=== PATIENT | female | born 1990 | race Caucasian/White ===

== ENCOUNTER 2018-08-16 10:03 | Day surgery (SDC) | payer OTHER ==
[2018-08-16] MEDS ORDERED: LIDOCAINE 2% INJ 100 MG/5 ML SDV (FOR ANES.) As Ordered (10:31)
[2018-08-16] MEDS ORDERED: ROCURONIUM BROMIDE 50 MG/5 ML VIAL As Ordered (10:31)
[2018-08-16] MEDS ORDERED: PROPOFOL 200 MG/20 ML VIAL As Ordered ×3 (10:31→12:47)
[2018-08-16] MEDS ORDERED: fentaNYL 250 MCG/5 ML INJECTION (J3010) As Ordered (10:32)
[2018-08-16] MEDS ORDERED: MIDAZOLAM INJ 2 MG/2 ML VIAL (J2250) As Ordered ×2 (10:35→13:10)
[2018-08-16 10:41] LABS: CONTROL LINE UCG INT CTR LINE PRESENT; URINE PREG TEST NEGATIVE (NEGATIVE)
[2018-08-16] MEDS: dexameTHASONE 4 MG/ML 1ML VIAL (J1100) IV (11:48)
[2018-08-16] MEDS: AMPICILLIN SOD/SULBACTAM SOD 3 GM in D5W MINI-BAG PLUS 100 ML IV (11:48)
[2018-08-16] MEDS: LIDOCAINE 2% W/ EPINEPHRINE 1.7 ML DENTAL INJ As Ordered (11:55)
[2018-08-16] MEDS ORDERED: ONDANSETRON 4MG/2ML VIAL (J2405) As Ordered (12:19)
[2018-08-16] MEDS ORDERED: GLYCOPYRROLATE INJ 0.2 MG/ML 2 ML VIAL As Ordered (12:19)
[2018-08-16] MEDS ORDERED: NEOSTIGMINE 10 MG/10 ML VIAL (J2710) As Ordered (12:19)
[2018-08-16] MEDS ORDERED: fentaNYL 100 MCG/2 ML INJECTION (J3010) As Ordered ×2 (12:39→13:10)
[2018-08-16] MEDS: fentaNYL 100 MCG/2 ML INJECTION (J3010) IV ×4 (13:10→13:20)
[2018-08-16] MEDS: MIDAZOLAM INJ 2 MG/2 ML VIAL (J2250) IV ×2 (13:10→13:15)
[2018-08-16] MEDS ORDERED: MORPHINE 10 MG/ML 1ML VIAL (J2270) As Ordered (13:28)
[2018-08-16] MEDS: MORPHINE 10 MG/ML 1ML VIAL (J2270) IV ×4 (13:28→13:48)
[2018-08-16] MEDS ORDERED: LR 1,000 ML IV (13:30)
[2018-08-16] MEDS ORDERED: METOCLOPRAMIDE INJ 10MG/2ML VIAL (J2765) IV (13:30)
[2018-08-16] MEDS: PERCOCET 5MG/325MG TAB PO (13:58)
[2018-08-16] MEDS: ONDANSETRON 4MG/2ML VIAL (J2405) IV (14:10)
== END 2018-08-16 15:04 | disposition home or self-care (01) ==
LOC: M SDC 15:04
DX: K02.9 Dental caries, unspecified (principal); F40.232 Fear of other medical care; F41.9 Anxiety disorder, unspecified; J30.9 Allergic rhinitis, unspecified; Z88.1 Allergy status to other antibiotic agents; Z72.0 Tobacco use
CPT/HCPCS: D9223